=== PATIENT | female | born 1975 | race Caucasian/White ===

== ENCOUNTER 2017-01-11 09:11 | Day surgery (SDC) | payer OTHER ==
[~2017-01-11 09:11] MED LIST: FENTANYL 250 MCG/5 ML AMP IV PRN; LACTATED RINGERS 1,000 ML IV SCH; LIDOCAINE Viscous 2% 15 ML UDCUP PO PRN; MIDAZOLAM HCL 5 MG/5 ML VIAL IV PRN
[2017-01-11] MEDS ORDERED: FENTANYL 5 ML ONE (10:34)
[2017-01-11] MEDS ORDERED: LIDOCAINE Viscous 2% 15 ML UDCUP ONE (10:34)
[2017-01-11] MEDS ORDERED: MIDAZOLAM HCL 5 MG/5 ML VIAL ONE (10:34)
[2017-01-11 15:15] LABS: HELICOBACTER PYLORII DETECTION NEGATIVE (NEGATIVE)
--- NOTE | 2017-01-13 08:58 | SURGPATH ---
[facility] [address] [place] [id number] Patient Name: MENDY TOWNSEND MR#: [id number] : 1975 Gender: F Specimen #: [id number] Collected: 01/11/2017 Received: 01/12/2017 Reported: 01/13/2017 Submitting Phys: MATI WILHELM Copy To Phys: [facility] Clinical History / Pre-Operative Diagnosis: RUQ N. CHEST PAIN WITH NAUSEA AND VOMITING; RULE OUT GIARDIA, CELIAC CURRENT GASTRITIS Specimen Source / Surgical Procedure Performed: #1-DUODENAL BIOPSY; #2-ANTRAL BIOPSY Interpretation: 1. DUODENUM, BIOPSY: - SMALL BOWEL MUCOSA WITH NO DIAGNOSTIC ABNORMALITY 2. STOMACH, ANTRUM, BIOPSY: - GASTRIC MUCOSA WITH NO DIAGNOSTIC ABNORMALITY Electronically Signed Out Marlys Alcocer M.D. Gross Description: #1 The specimen is received in a formalin filled container labeled with the patient's name and "duodenal biopsy". Two olivares biopsies are 0.3 and 0.4 cm. Totally embedded in cassette #1. #2 The specimen is received in a formalin filled container labeled with the patient's name and "antral biopsy". Two olivares biopsies are 0.3 and 0.5 cm. Totally embedded in cassette #2. Junior Gonzalez Microscopic Description: 1. Sections show fragments of small bowel mucosa with long and well preserved villous processes. There is no significant inflammation and lymphocytes are not increased within the epithelium. No infectious organisms are identified and there is no dysplasia. 2. Sections show fragments of gastric mucosa. There is normal mucosal architecture and no significant inflammation. No Helicobacter organisms are identified and there is no intestinal metaplasia or dysplasia. 1: [id number] 2: 02332 R10.11
== END 2017-01-11 11:53 | disposition home or self-care (01) ==
LOC: SDC 09:11
PROVIDERS: ATTEND Internal Medicine Gastroenterology
PROC: 0DB68ZX Excision of Stomach, Via Natural or Artificial Opening Endoscopic, Diagnostic (ICD-10-PCS; principal; 2017-01-11)
PROC: 0DB98ZX Excision of Duodenum, Via Natural or Artificial Opening Endoscopic, Diagnostic (ICD-10-PCS; 2017-01-11)
DX: K29.70 Gastritis, unspecified, without bleeding (principal); K29.80 Duodenitis without bleeding; E78.5 Hyperlipidemia, unspecified; F41.9 Anxiety disorder, unspecified; F32.9 Major depressive disorder, single episode, unspecified; E11.9 Type 2 diabetes mellitus without complications; Z79.4 Long term (current) use of insulin; Z88.5 Allergy status to narcotic agent
CPT/HCPCS: 87081; 43239; J3010; J2250; A9270